=== PATIENT | male | born 1935 | race Caucasian/White ===

== ENCOUNTER → 2021-08-24 14:06 | Outpatient (BNVA) | payer MEDICARE, SELFPAY | PROVIDERS: PCP Nurse Practitioner Adult Health; Visit Provider Psychiatry & Neurology Neurology | DX: G20 Parkinson's disease (principal); G25.2 Other specified forms of tremor; Z79.899 Other long term (current) drug therapy | CPT/HCPCS: 99202 ==

== ENCOUNTER 2024-08-28 15:45 | Emergency (ER) | payer MEDICARE, SELFPAY ==
[2024-08-28] VITALS (9 sets, daily range): BP systolic 95–128; BP diastolic 58–99; PULSE 81–130; RESP 16–22; TEMP 36.4–37.6; O2SAT 95–99; BMI 21.3
--- NOTE | ~2024-08-28 | XR_ITS ---
CLINICAL HISTORY: RSV, cough AP view of the chest Comparison: None Findings: Bilateral peribronchial thickening suggesting bronchitis. No consolidation, pleural effusion or pneumothorax. Normal heart size. Chronic fractures of the right posterior 6th and 7th ribs. Impression: Bilateral peribronchial thickening suggesting bronchitis. This document has been electronically signed by: Cheli Romo MD on 08/28/2024 19:23:35
--- NOTE | ~2024-08-28 | CT_ITS ---
EXAMINATION: CT HEAD WITHOUT CONTRAST (STROKE PROTOCOL) CLINICAL INFORMATION: Stroke protocol. 89-year-old male, found unresponsive. COMPARISON: None available. TECHNIQUE: Contiguous axial imaging was performed from the skull base to vertex without intravenous administration of contrast. This CT examination was performed using dose optimization techniques as appropriate, variously including the following: *Automated exposure control *Adjustment of mA and/or kV according to patient size (this includes techniques or standardized protocols for targeted exams where dose is matched to indication/reason for exam; i.e. extremities or head) *Use of iterative reconstruction technique FINDINGS: There is no evidence of intracranial hemorrhage or extra-axial fluid collection. There is no mass effect, or edema. No CT evidence of acute territorial infarct. Ventricles, sulci, and cisterns are mildly diffusely prominent, in keeping with age appropriate involutional changes. No hydrocephalus. No midline shift. Negative hyperdense MCA sign. Negative insular ribbon sign. Minimal degree of hypoattenuating supratentorial white matter foci, in keeping with small vessel ischemia. Normal sella. Moderate atheromatous calcification of the bilateral carotid siphons and V4 segments vertebral arteries bilaterally. Globes and orbital contents image normally. Left lens replacement noted. No extracranial soft tissue abnormalities. Mild mucosal thickening right maxillary sinus. Partial opacification right mastoid air cells. The paranasal sinuses, left mastoid air cells, and bilateral tympanic cavities are otherwise normally aerated. Left nasal septal deviation with prominent spur. No suspicious bony abnormalities. No fractures seen. CT/CT head for STROKE IMPRESSION: 1. No acute intracranial abnormality. No CT evidence of acute territorial infarct, intracranial hemorrhage, or mass effect. 2. Right mastoid effusion. Electronically signed by: Jared Fischer MD 08/28/2024 04:10 PM [facility]
--- NOTE | 2024-08-28 15:49 | ECG_ITS ---
Test Reason : ?STROKE Blood Pressure : */* mmHG Vent. Rate : 105 BPM Atrial Rate : * BPM P-R Int : * ms QRS Dur : 86 ms QT Int : 300 ms P-R-T Axes : * -36 -9 degrees QTcB Int : 396 ms Atrial fibrillation with rapid ventricular response Left axis deviation Abnormal ECG No previous ECGs available Referred By: Kate Rinaldi Electronically Signed By: MONICA BETANCUR MD
[2024-08-28 15:53] LABS: MANUAL DIFF FLAG NO
[2024-08-28 15:57] LABS: Basophils Percent Auto 0.2 % (0-2); Eosinophils Absolute Auto 0.2 X10*3/uL (0.0-0.4); Eosinophils Percent Auto 2.2 % (0-4); Hematocrit 42.7 % (42.0-52.0); Hemoglobin 14.4 g/dl (14.0-18.0); Imm Gran Abs Auto 0.05 X10*3/uL (0.00-0.03); Imm Gran Pct Auto 0.6 % (0.0-0.4); Lymphocytes Absolute Auto 1.9 X10*3/uL (1.2-4.9); Lymphocytes Percent Auto 22.6 % (20-40); Mean Corpuscular HGB Conc 33.7 g/dl (31.0-36.0); Mean Corpuscular Hemoglobin 31.7 pg (27.0-33.0); Mean Corpuscular Volume 94.1 fL (80.0-98.0); Mean Platelet Volume 9.7 fL (9.4-12.4); Monocytes Absolute Auto 0.9 X10*3/uL (0.1-1.2); Monocytes Percent Auto 11.4 % (2-11); Neutrophils Absolute Auto 5.2 x10*3/uL (2.0-8.3); Platelet Count 172 X10*3/uL (160-400); Red Blood Count 4.54 X10*6/uL (4.60-5.80); Red Cell Distribution Width 13.8 % (11.0-16.0); White Blood Count 8.2 X10*3/uL (4.8-10.8)
[2024-08-28 16:03] LABS: INTERNATIONAL NORM RATIO 1.2 (0.9-1.1); Prothrombin Time 13.5 SEC (10.9-12.4)
[2024-08-28 16:05] LABS: Partial Thromboplastin Time 34.1 SEC (26.0-36.8)
[2024-08-28 16:19] LABS: Anion Gap 10 (12-20); Blood Urea Nitrogen 18 mg/dL (9-16); Calcium 8.7 mg/dL (8.4-10.2); Carbon Dioxide 24 mmol/L (22-29); Chloride 111 mmol/L (96-108); Cholesterol 104 mg/dL (<200); Creatinine Clr Calc Pharmacy 70.5; Estimated Glomerular Filt Rate > 60; Glucose Random 92 mg/dL (60-115); HDL Cholesterol 33 mg/dL (>40); LDL Cholesterol Calculated 58 mg/dL (<100); Potassium 3.6 mmol/L (3.3-5.1); Sodium 141 mmol/L (135-145); Triglycerides 67 mg/dL (<150)
[2024-08-28 16:26] LABS: Troponin-I High Sensitivity 4.1 ng/L (<3.5-35.0)
--- NOTE | 2024-08-28 16:38 | ED_ITS ---
HPI - Neuro Symptoms/Deficit General Chief Complaint: Stroke Stated Complaint: found non responsive by snf staff Time Seen by Provider: 08/28/24 15:57 History of Present Illness ED Provider: Kelvin Andrew MD HPI Narrative: [age] male brought from [facility] patient has advanced Parkinson's they felt he had transient decreased general responsive this there was no focal neurologic deficits expressed to us or seizure activity. Temp between 99 and 100 on arrival Related Data Home Medications ?Medication ?Instructions ?Recorded ?Confirmed apixaban 5 mg tablet (Eliquis) 5 mg PO BID 08/24/21 08/24/21 carbidopa 25 mg-levodopa 100 mg 2 tab PO BID 08/24/21 08/24/21 tablet finasteride 5 mg tablet 5 mg PO DAILY 08/24/21 08/24/21 metoprolol succinate 25 mg 25 mg PO BID 08/24/21 08/24/21 tablet,extended release 24 hr simvastatin 40 mg tablet 40 mg PO DAILY 08/24/21 08/24/21 tamsulosin 0.4 mg capsule 0.8 mg PO DAILY 08/24/21 08/24/21 Allergies Allergy/AdvReac Type Severity Reaction Status Date / Time No Known Allergies Allergy Verified 08/28/24 16:06 [facility] Past Medical History Medical History Action tremor Atrial fibrillation HTN (hypertension) Parkinsons Prostate hypertrophy Surgical History H/O heart artery stent History of kidney surgery Family History Family History Father Cancer Mother Cancer Maternal Aunt Cancer Asthma Social History Social History Alcohol intake: never Patient Tobacco Use Status: Never used Tobacco Advance Directives: No Advance Directives Information Provided: No Physical Exam 2 Vital Signs: Vital Signs: Last Vital Signs Temp 97.6 F 08/28/24 23:48 Pulse 81 08/28/24 23:48 Resp 16 08/28/24 23:48 BP 125/63 08/28/24 23:48 Pulse Ox 96 08/28/24 23:48 O2 Del Method Room Air 01/16/25 23:48 BMI result Body Mass Index 21.3 Const: Other: EXAM: Arrival: Gen: Appears slightly dehydrated he opens his eyes to loud verbal stim he has tremor of the upper extremity distally. He does move all of his extremities but is limited and following commands slightly Head: Atraumatic Eyes: Anicteric, Normal conjunctiva. Pupils 3-4 mm symmetric and reactive he appears to move them in all directions no gaze preference ENT: Moist mucosa, no pallor. ? Neck: Supple. Respiratory: Breathing comfortably, No distress.Clear to auscultation bilaterally, symmetric chest expansion, No wheeze, rales, ronchi. Cardiovascular: Regular rate and rhythm. No murmurs or rub. Well perfused periphery, warm extremities. No edema. ? Abdominal: Soft, no objective distension. No palpable masses or obvious organomegaly. No focal tenderness, no guarding, no rebound tenderness or other peritoneal findings. : No flank tenderness. Neuro: Alert. Gross movement of all extremities intact. ?Tremor, general rigidity mask facies all suggestive of parkinsonism. Moving all extremities , no suggestion of focal motor deficit. Vital signs: See flowsheet Medications Administered Discontinued Medications Generic Name Dose Route Start Last Admin Trade Name Freq PRN Reason Stop Dose Admin Acetaminophen 975 mg 08/28/24 19:23 08/28/24 19:34 Acetaminophen 325 Mg Tablet PO 08/28/24 19:24 975 mg ONCE ONE Administration Metoprolol Tartrate 2.5 mg/ 52.5 mls @ 230 mls/hr 08/28/24 19:26 08/28/24 20:06 Sodium Chloride IV 08/28/24 19:39 Infused ONCE ONE Infusion Protocol Sodium Chloride 500 mls @ 50 mls/hr 08/28/24 20:45 08/28/24 20:38 Ns IV 08/29/24 06:44 50 mls/hr .Q10H NITO Administration Metoprolol Tartrate 25 mg 08/28/24 19:23 08/28/24 19:36 Metoprolol Tartrate 25 Mg Tablet PO 08/28/24 19:24 25 mg ONCE ONE Administration Protocol Metoprolol Tartrate 50 mg 08/28/24 20:24 08/28/24 20:32 Metoprolol Tartrate 50 Mg Tablet PO 08/28/24 20:25 50 mg ONCE ONE Administration Protocol Medical Decision Making Medical Decision Making MDM Narrative: 89M with transient ?AMS. Non focal, drowsy. EMS arrived reported stroke concern however pt warm to the touch, drowsy, no focal deficits reported. I de- escalated this as pt appeared to have likely metabolic or infectious etiology. CT head without acute pathology. Pt mildly tachycardic , AFib with RVR (chronic). Likely missed rate control evening meds and low grade fever. RSV+. Bronchial thickening on XR. No focal infiltrate, no hypoxia or resp distress. RN d/w HCP/NOK comfortable with DC back to SNF. No actionable lab findings. Euglycemic on arrival. ECG: AFib, RVR no ischemia __ Recheck 1215p: Improved tachycardia. No fever. Pt is comfortable. No complaints, +PO tolerant. DC home , working Dx is drowsiness, transient AMS in the setting of RSV viral syndrome and parkinson Lab Data [facility] Lab Attestation statement: I reviewed the patient's lab results. 08/28/24 15:48 08/28/24 15:48 Labs: Lab Results 08/28/24 08/28/24 08/28/24 Range/Units 15:47 15:48 16:30 WBC 8.2 (4.8-10.8) X10*3/uL RBC 4.54 L (4.60-5.80) X10*6/uL Hgb 14.4 (14.0-18.0) g/dl Hct 42.7 (42.0-52.0) % MCV 94.1 (80.0-98.0) fL MCH 31.7 (27.0-33.0) pg MCHC 33.7 (31.0-36.0) g/dl RDW 13.8 (11.0-16.0) % Plt Count 172 (160-400) X10*3/uL MPV 9.7 (9.4-12.4) fL Immature Gran % (Auto) 0.6 H (0.0-0.4) % Neut % (Auto) 63.0 (45-73) % Lymph % (Auto) 22.6 (20-40) % [place] % (Auto) 11.4 H (2-11) % Eos % (Auto) 2.2 (0-4) % Baso % (Auto) 0.2 (0-2) % Lymph # (Auto) 1.9 (1.2-4.9) X10*3/uL [place] # (Auto) 0.9 (0.1-1.2) X10*3/uL Eos # (Auto) 0.2 (0.0-0.4) X10*3/uL Baso # (Auto) 0.0 (0.0-0.2) X10*3/uL Abs Immat Gran (auto) 0.05 H (0.00-0.03) X10*3/uL Absolute Neuts (auto) 5.2 (2.0-8.3) x10*3/uL Absolute Nucleated RBC 0.000 (0.0-0.012) X10*3/uL Nucleated RBC % (auto) 0.0 (0.0-0.2) /100WBC Hold Purple Top SEE NOTE PT 13.5 H (10.9-12.4) SEC Whole Blood PT 13.1 (11.1-13.5) sec INR 1.2 H (0.9-1.1) Whole Blood INR 1.1 (0.9-1.1) APTT 34.1 (26.0-36.8) SEC Sodium 141 (135-145) mmol/L Potassium 3.6 (3.3-5.1) mmol/L Chloride 111 H (96-108) mmol/L Carbon Dioxide 24 (22-29) mmol/L Anion Gap 10 L (12-20) BUN 18 H (9-16) mg/dL Creatinine 0.71 (0.5-1.4) mg/dL Estim Creat Clear Calc 70.5 Estimated GFR > 60 POC Glucose 152 H (60-115) mg/dL Random Glucose 92 (60-115) mg/dL Lactic Acid 1.1 (0.5-2.0) mmol/L Calcium 8.7 (8.4-10.2) mg/dL Troponin I High Sens 4.1 (<3.5-35.0) ng/L Triglycerides 67 (<150) mg/dL Cholesterol 104 (<200) mg/dL LDL Cholesterol, Calc 58 (<100) mg/dL HDL Cholesterol 33 L (>40) mg/dL Influenza Type A (PCR) (Negative) Influenza Type B (PCR) (Negative) RSV RNA Qual (PCR) (Negative) SARS-CoV-2 RNA (RT-PCR) (Negative) 08/28/24 Range/Units 16:48 WBC (4.8-10.8) X10*3/uL RBC (4.60-5.80) X10*6/uL Hgb (14.0-18.0) g/dl Hct (42.0-52.0) % MCV (80.0-98.0) fL MCH (27.0-33.0) pg MCHC (31.0-36.0) g/dl RDW (11.0-16.0) % Plt Count (160-400) X10*3/uL MPV (9.4-12.4) fL Immature Gran % (Auto) (0.0-0.4) % Neut % (Auto) (45-73) % Lymph % (Auto) (20-40) % [place] % (Auto) (2-11) % Eos % (Auto) (0-4) % Baso % (Auto) (0-2) % Lymph # (Auto) (1.2-4.9) X10*3/uL [place] # (Auto) (0.1-1.2) X10*3/uL Eos # (Auto) (0.0-0.4) X10*3/uL Baso # (Auto) (0.0-0.2) X10*3/uL Abs Immat Gran (auto) (0.00-0.03) X10*3/uL Absolute Neuts (auto) (2.0-8.3) x10*3/uL Absolute Nucleated RBC (0.0-0.012) X10*3/uL Nucleated RBC % (auto) (0.0-0.2) /100WBC Hold Purple Top PT (10.9-12.4) SEC Whole Blood PT (11.1-13.5) sec INR (0.9-1.1) Whole Blood INR (0.9-1.1) APTT (26.0-36.8) SEC Sodium (135-145) mmol/L Potassium (3.3-5.1) mmol/L Chloride (96-108) mmol/L Carbon Dioxide (22-29) mmol/L Anion Gap (12-20) BUN (9-16) mg/dL Creatinine (0.5-1.4) mg/dL Estim Creat Clear Calc Estimated GFR POC Glucose (60-115) mg/dL Random Glucose (60-115) mg/dL Lactic Acid (0.5-2.0) mmol/L Calcium (8.4-10.2) mg/dL Troponin I High Sens (<3.5-35.0) ng/L Triglycerides (<150) mg/dL Cholesterol (<200) mg/dL LDL Cholesterol, Calc (<100) mg/dL HDL Cholesterol (>40) mg/dL Influenza Type A (PCR) NEGATIVE (Negative) Influenza Type B (PCR) NEGATIVE (Negative) RSV RNA Qual (PCR) POSITIVE A (Negative) SARS-CoV-2 RNA (RT-PCR) NEGATIVE (Negative) Independent Interpretation I performed an independent interpretation of an: EKG Discharge Plan Discharge Clinical Impression: RSV (respiratory syncytial virus infection) Patient Disposition: Home, Self-Care Instructions: Respiratory Syncytial Virus (ED) Prescriptions: No Action Eliquis 5 mg tablet 5 mg PO BID carbidopa-levodopa 25-100 mg tablet 2 tab PO BID finasteride 5 mg tablet 5 mg PO DAILY metoprolol succinate 25 mg tablet extended release 24 hr 25 mg PO BID simvastatin 40 mg tablet 40 mg PO DAILY tamsulosin 0.4 mg capsule 0.8 mg PO DAILY Interventions: ED Discharge Assessment Last Done: 08/28/24 23:48 Discharge Date/Time: 08/28/24 23:50 Print Language: Amharic
[2024-08-28 16:57] LABS: Lactic Acid 1.1 mmol/L (0.5-2.0)
[2024-08-28 17:44] LABS: Influenza A PCR NEGATIVE (Negative); Influenza B PCR NEGATIVE (Negative); Resp Syncy Virus RNA Qual PCR POSITIVE (Negative); SARS COV2 PCR INHOUSE NEGATIVE (Negative)
[2024-08-28 17:59] LABS: Stroke Lab Use COMPLETE
--- NOTE | 2024-08-28 18:25 | PC.NURSE ---
Patient more alert , sitting up able to answer simple questions. Niece updated on current condition, aware patient has RSV. Niece stating patient has dementia and at baseline can answer basic questions but does not talk a lot
[2024-08-28] MEDS: Acetaminophen 325 MG TABLET 975 MG PO (19:34)
[2024-08-28] MEDS: Metoprolol Tartrate 2.5 MG in 0.9 % Sodium Chloride 50 ML 230 MG IV (19:35)
[2024-08-28] MEDS: Metoprolol Tartrate 25 MG TABLET PO (19:36)
[2024-08-28] MEDS: Metoprolol Tartrate 50 MG TABLET PO (20:32)
[2024-08-28] MEDS: 0.9 % Sodium Chloride 500 ML 50 ML IV (20:38)
[2024-08-29 14:52] LABS: Glucose, Whole Blood 152 mg/dL (60-115)
[2024-08-29 14:53] LABS: Prothrombin Time Whole Bld POC 13.1 sec (11.1-13.5); ~PT, ~INR - Anti Coag Clinic 1.1 (0.9-1.1)
== END 2024-08-28 23:50 | disposition home or self-care (01) ==
PROVIDERS: Student in an Organized Health Care Education/Training Program; Emergency Provider Emergency Medicine; PCP Nurse Practitioner Adult Health
DX: J22 Unspecified acute lower respiratory infection (principal); B97.4 Respiratory syncytial virus as the cause of diseases classified elsewhere; R40.4 Transient alteration of awareness; E86.0 Dehydration; G20.A1 Parkinson's disease without dyskinesia, without mention of fluctuations; I48.20 Chronic atrial fibrillation, unspecified; R50.9 Fever, unspecified; R00.0 Tachycardia, unspecified; I10 Essential (primary) hypertension; Z03.818 Encounter for observation for suspected exposure to other biological agents ruled out; Z79.899 Other long term (current) drug therapy; Z79.01 Long term (current) use of anticoagulants
CPT/HCPCS: 0241U; 36415; 70450; 71045; 80048; 80061; 82947; 83605; 84484; 85025; 85610; 85730; 87040; 93005; 96365; 99285

== ENCOUNTER → 2024-08-28 15:49 | Outpatient (BNV) | payer MEDICARE, SELFPAY | PROVIDERS: Emergency Provider Emergency Medicine; Visit Provider Radiology Diagnostic Radiology | DX: I63.9 Cerebral infarction, unspecified (principal); R05.9 Cough, unspecified | CPT/HCPCS: 70450 ==

== ENCOUNTER → 2024-08-28 15:49 | Outpatient (BNV) | payer MEDICARE, SELFPAY | PROVIDERS: Emergency Provider Emergency Medicine; PCP Nurse Practitioner Adult Health; Visit Provider Internal Medicine Cardiovascular Disease | DX: R94.31 Abnormal electrocardiogram [ECG] [EKG] (principal) | CPT/HCPCS: 93010 ==